=== PATIENT | female | born 1965 | race American Indian/Alaskan Native ===

== ENCOUNTER 2018-04-03 12:03 | Emergency (ER) | payer OTHER ==
--- NOTE | 2018-04-03 12:45 | Emergency Department Report ---
HPI - General Chief Complaint: Extremity Injury, Lower Time Seen by Provider: 04/03/18 12:25 - HPI HPI: Room 4 The patient is a 53-year-old female presenting with a chief complaint of bilateral lower extremity swelling. The patient states for the past 2 weeks she 's had intermittent swelling and tightness of both lower extremities, patient denies trauma. Patient denies chest pain or shortness of breath. Patient denies any history of fever. Patient states she went to see her primary physician and was told she needed to lose weight Location: Bilateral lower extremity Duration: Intermittent 2 weeks Quality: Tightness Severity: Mild Modifying factors: [see above] Context: [see above] Mode of transportation: unknown ED Past Medical Hx - Past Medical History Hx Arthritis: Yes Additional medical history: high cholesterol - Surgical History Past Surgical History?: No - Family History Family history: no significant - Social History Smoking Status: Former Smoker (none 30 years) Substance Use Type: None (denies illicit drug use), Alcohol (occasional) - Medications Home Medications: Home Medications Medication Instructions Recorded Confirmed Last Taken Type Acetaminophen/Codeine [Tylenol #3] 1 tab PO Q4HR PRN #20 tablet 06/14/15 Unknown Rx Cyclobenzaprine [Flexeril] 10 mg PO TID PRN #20 tablet 06/14/15 Unknown Rx Ibuprofen [Motrin 600 MG tab] 600 mg PO Q8H PRN #30 tablet 06/14/15 Unknown Rx Cyclobenzaprine [Flexeril] 10 mg PO TID PRN #14 tablet 04/03/18 Unknown Rx Ibuprofen [Motrin 800 MG tab] 800 mg PO Q8HR PRN #20 tablet 04/03/18 Unknown Rx ED Review of Systems ROS: Stated complaint: BOTH LEGS PAIN/LFT SHARP PAINS Other details as noted in HPI Constitutional: denies: fever Eyes: denies: eye pain ENT: denies: throat pain Respiratory: SOB with exertion Cardiovascular: denies: chest pain Endocrine: no symptoms reported Gastrointestinal: denies: abdominal pain Genitourinary: denies: dysuria Musculoskeletal: myalgia Neurological: denies: headache Physical Exam - Physical Exam Vital Signs: Vital Signs 04/03/18 12:10 Temperature 98.2 F Pulse Rate 86 Respiratory 18 Rate Blood Pressure 172/99 O2 Sat by Pulse 99 Oximetry Physical Exam: GENERAL: The patient is well-developed well-nourished female sitting on stretcher not appearing to be in acute distress. [] HEENT: Normocephalic. Atraumatic. Extraocular motions are intact. Patient has moist mucous membranes. NECK: Supple. Trachea midline CHEST/LUNGS: Clear to auscultation. There is no respiratory distress noted. HEART/CARDIOVASCULAR: Regular. There is no tachycardia. There is no gallop rub or murmur. ABDOMEN: Abdomen is soft, nontender. Patient has normal bowel sounds. There is no abdominal distention. SKIN: There is no rash. There is trace bilateral lower extremity pitting edema. There is no diaphoresis. NEURO: The patient is awake, alert, and oriented. The patient is cooperative. The patient has normal speech MUSCULOSKELETAL: There is no evidence of acute injury. ED Course Vital Signs 04/03/18 12:10 Temperature 98.2 F Pulse Rate 86 Respiratory 18 Rate Blood Pressure 172/99 O2 Sat by Pulse 99 Oximetry ED Medical Decision Making - Lab Data Result diagrams: 04/03/18 12:42 04/03/18 12:42 Laboratory Tests 04/03/18 04/03/18 12:42 12:42 WBC 7.9 RBC 4.17 Hgb 12.7 Hct 37.3 MCV 90 MCH 31 MCHC 34 RDW 14.0 Plt Count 287 Lymph % (Auto) 28.8 Pepin % (Auto) 6.7 Eos % (Auto) 0.9 Baso % (Auto) 0.7 Lymph # 2.3 Pepin # 0.5 Eos # 0.1 Baso # 0.1 Seg Neutrophils % 62.9 Seg Neutrophils # 4.9 Sodium 138 Potassium 4.8 Chloride 101.9 Carbon Dioxide 22 Anion Gap 19 BUN 13 Creatinine 0.5 L Estimated GFR > 60 BUN/Creatinine Ratio 26 Glucose 87 Calcium 9.3 Total Bilirubin 0.30 AST 24 ALT 12 Alkaline Phosphatase 128 NT-Pro-B Natriuret Pep 10.97 Total Protein 8.1 Albumin 4.2 Albumin/Globulin Ratio 1.1 - Radiology Data Radiology results: report reviewed (bilateral lower extremity Doppler) MEAGAN KELLEY [facility] 1965 [id number] 04/03/18 13:55 - Radiology Dept. Note by PAO KWON Acct Num: [id number] : 1965 Patient Age: 53 VASCULAR LAB.PRELIMINARY REPORT. BLE VENOUS DUPLEX DONE BEDSIDE. NO EVIDENCE OF DVT/SVT IN VESSELS VISUALIZED. Initialized on 04/03/18 13:55 - END OF NOTE - Differential Diagnosis CHF, hypoalbuminemia, renal insufficiency, DVT Critical care attestation.: If time is entered above; I have spent that time in minutes in the direct care of this critically ill patient, excluding procedure time. ED Disposition Clinical Impression: Bilateral lower extremity edema Disposition: TO HOME OR SELFCARE Is pt being admited?: No Does the pt Need Aspirin: No Condition: Stable Instructions: Leg Edema (ED) Additional Instructions: Return to the emergency department immediately should you develop worsening symptoms, fever, inability to tolerate food or liquid or any other concerns. Prescriptions: Cyclobenzaprine [Flexeril] 10 mg PO TID PRN #14 tablet PRN Reason: Muscle Spasm Ibuprofen [Motrin 800 MG tab] 800 mg PO Q8HR PRN #20 tablet PRN Reason: Pain , Severe (7-10) Referrals: PRIMARY CARE, [Referring] - 3-5 Days Time of Disposition: 14:01
[2018-04-03 13:01] LABS: Basophils # (Auto) 0.1 K/mm3 (0.0-0.1); Basophils % (Auto) 0.7 % (0.0-1.8); Eosinophils # (Auto) 0.1 K/mm3 (0.0-0.4); Eosinophils % (Auto) 0.9 % (0.0-4.3); Hematocrit 37.3 % (30.3-42.9); Hemoglobin 12.7 gm/dl (10.1-14.3); Lymphocytes # (Auto) 2.3 K/mm3 (1.2-5.4); Lymphocytes % (Auto) 28.8 % (13.4-35.0); Mean Corpuscular HGB Conc 34 % (30-34); Mean Corpuscular Hemoglobin 31 pg (28-32); Mean Corpuscular Volume 90 fl (79-97); Monocytes # (Auto) 0.5 K/mm3 (0.0-0.8); Monocytes % (Auto) 6.7 % (0.0-7.3); Platelet Count 287 K/mm3 (140-440); Red Blood Count 4.17 M/mm3 (3.65-5.03)
[2018-04-03 13:20] LABS: Albumin 4.2 g/dL (3.9-5); BUN/Creatinine Ratio 26; Blood Urea Nitrogen 13 mg/dL (7-17); Calcium 9.3 mg/dL (8.4-10.2); Hemolysis Index 109
[2018-04-03 13:32] LABS: Alanine Aminotransferase 12 units/L (7-56)
[2018-04-03 14:03] VITALS: BP 125/83
== END 2018-04-03 14:15 | disposition home or self-care (01) ==
LOC: ED 12:03
DX: R60.0 Localized edema (principal); J45.909 Unspecified asthma, uncomplicated; E78.00 Pure hypercholesterolemia, unspecified; Z87.891 Personal history of nicotine dependence
CPT/HCPCS: 36415; 80053; 83880; 85025; 93970; 99284